=== PATIENT | male | born 1990 | race Caucasian/White ===

== ENCOUNTER → 2022-02-01 | Outpatient (CLI) | payer OTHER ==
--- NOTE | 2022-02-01 16:46 | US ---
EXAMINATION TYPE: US scrotum with doppler. Grayscale and color Doppler Duplex imaging performed of t jacob scrotum. DATE OF EXAM: 02/01/2022 COMPARISON: NONE CLINICAL HISTORY: N50.812 LEFT TESTICULAR PAIN. EXAM MEASUREMENTS: TESTICLES: Right Testicle: 5.4 x 2.5 x 3.5 cm Left Testicle: 4.9 x 3.0 x 3.3 cm EPIDIDYMIS HEAD: Right Epididymis: 0.6 cm Left Epididymis: 0.7 cm Doppler performed to assess for testicular vascularity; good bilateral color flow and waveforms are s een. There is no evidence of testicular torsion. Presence of hydroceles: small right measuring 3.1 x 0.5 x 1.7cm Presence of varicoceles: no IMPRESSION: 1. Appropriate arterial and spectral venous waveforms bilaterally. 2. Small right hydrocele. 3. No evidence for acute process.
== END | disposition home or self-care (01) ==
LOC: RADUSWWP 15:55
PROVIDERS: ATTEND Family Medicine
DX: N43.3 Hydrocele, unspecified (principal); N50.812 Left testicular pain
CPT/HCPCS: 76870; 93975

== ENCOUNTER 2023-04-17 20:42 | Emergency (ER) | payer OTHER ==
[2023-04-17 20:54] VITALS: RESP 18; TEMP 97.3
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
[2023-04-17 22:54] VITALS: BP 138/89; PULSE 81
== END 2023-04-17 22:44 | disposition home or self-care (01) ==
LOC: EC 20:42
DX: M54.2 Cervicalgia (principal); F12.90 Cannabis use, unspecified, uncomplicated; V89.2XXA Person injured in unspecified motor-vehicle accident, traffic, initial encounter; Y92.411 Interstate highway as the place of occurrence of the external cause
CPT/HCPCS: 72050; 99284

== ENCOUNTER 2024-01-20 11:55 | Emergency (ER) | payer OTHER ==
[2024-01-20 12:01] VITALS: RESP 18
--- NOTE | 2024-01-20 12:43 | ED ---
General Adult HPI - General Chief complaint: Chest Pain Stated complaint: chest pain Time Seen by Provider: 01/20/24 12:05 Source: patient, RN notes reviewed Mode of arrival: ambulatory Limitations: no limitations - History of Present Illness Initial comments: Patient is a 33-year-old male presenting to the emergency department with concerns for chest discomfort. Symptoms have been occurring for the past couple of weeks. Discomfort does improve with stretching. Patient does exercise a lot and questions if this is related to sore muscles. No nausea. No diaphoresis. No family history of heart disease. Patient does not smoke cigarettes. No h ypercholesterolemia. No hypertension. Patient has had similar symptoms somewhat previously associated with sore muscles however not quite exactly the same as this. Patient also has times when he feels like his entire body seizes up and he cannot move. - Related Data Home Medications Medication Instructions Recorded Confirmed No Known Home Medications 01/20/24 01/20/24 Allergies Allergy/AdvReac Type Severity Reaction Status Date / Time No Known Allergies Allergy Verified 01/20/24 15:40 Review of Systems ROS Statement: Those systems with pertinent positive or pertinent negative responses have been documented in the HPI. ROS Other: All systems not noted in ROS Statement are negative. Constitutional: Denies: fever Eyes: Denies: eye pain ENT: Denies: ear pain Respiratory: Denies: dyspnea Cardiovascular: Denies: chest pain Endocrine: Denies: fatigue Gastrointestinal: Denies: abdominal pain, nausea, vomiting Genitourinary: Denies: dysuria Musculoskeletal: Denies: back pain Past Medical History Past Medical History: No Reported History History of Any Multi-Drug Resistant Organisms: None Reported Past Surgical History: No Surgical Hx Reported Past Psychological History: No Psychological Hx Reported Smoking Status: Never smoker Past Alcohol Use History: None Reported Past Drug Use History: Marijuana General Exam Limitations: no limitations General appearance: alert, in no apparent distress Head exam: Present: normocephalic Eye exam: Present: normal appearance Neck exam: Present: normal inspection Respiratory exam: Present: normal lung sounds bilaterally, chest wall tenderness (Left anterior chest wall) Cardiovascular Exam: Present: regular rate, normal rhythm, normal heart sounds Expanded Peripheral pulses: 2+: Radial (R), Radial (L), Posterior Tibialis (R), Posterior Tibialis (L) GI/Abdominal exam: Present: soft. Absent: distended, tenderness, pulsatile mass Extremities exam: Present: normal inspection. 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 sent in by a medical professional or institution (Dr. PA, SENIOR CLINICIAN, urgent care, hospital, or retirement...) When possible be specific @ -No Did you speak to anyone other than the patient for history (EMS, parent, family, police, friend...)? What history was obtained from this source @ -No Did you review nursing and triage notes (agree or disagree)? Why? @ -I reviewed and agree with nursing and triage notes Were old charts reviewed (outside hosp., previous admission, EMS record, old EKG, old radiological studies, urgent care reports/EKG's, retirement records)? Report findings @ -No old charts were reviewed Differential Diagnosis (chest pain, altered mental status, abdominal pain women, abdominal pain men, vaginal bleeding, weakness, fever, dyspnea, syncope, headache, dizziness, GI bleed, back pain, seizure, CVA, palpatations, mental health, musculoskeletal)? @ -Differential Chest Pain: Stable Angina, Unstable Angina, STEMI, NSTEMI Aortic Dissection, Pneumothorax, Musculoskeletal, Esophageal Spasm GERD, Cholecystitis, Pancreatitis, Zoster, this is not meant to be an all-inclusive list. EKG interpreted by me (3pts min.). @ -As above X-rays interpreted by me (1pt min.). @ -Chest x-ray shows no acute process CT interpreted by me (1pt min.). @ -None done U/S interpreted by me (1pt. min.). @ -None done What testing was considered but not performed or refused? (CT, X-rays, U/S, labs)? Why? @ -None What meds were considered but not given or refused? Why? @ -None Did you discuss the management of the patient with other professionals (professionals i.e. , PA, SENIOR CLINICIAN, lab, RT, psych nurse, social worker aide, windshield technician, teacher, lodge officer, rn case management)? Give summary @ -No Was smoking cessation discussed for >3mins.? @ -No Was critical care preformed (if so, how long)? @ -No Were there social determinants of health that impacted care today? How? (Homelessness, low income, unemployed, alcoholism, drug addiction, transportation, low edu. Level, literacy, decrease access to med. care, halfway, rehab)? @ -No Was there de-escalation of care discussed even if they declined (Discuss DNR or withdrawal of care, Hospice)? DNR status @ -No What co-morbidities impacted this encounter? (DM, HTN, Smoking, COPD, CAD, Cancer, CVA, ARF, Chemo, Hep., AIDS, mental health diagnosis, sleep apnea, morbid obesity)? @ -None Was patient admitted / discharged? Hospital course, mention meds given and route, prescriptions, significant lab abnormalities, going to OR and other pertinent info. @ -Patient presents with chest discomfort for the last 2 weeks, only minimal early this morning, none since that time. 2 Trope remains negative. Patient low suspicion for active cardiac disease. Patient updated on results and re commendation for close follow-up and to consider stress test. Patient remains symptom-free in the emergency department. Heart score 0 Undiagnosed new problem with uncertain prognosis? @ -No Drug Therapy requiring intensive monitoring for toxicity (Heparin, Nitro, Insulin, Cardizem)? @ -No Were any procedures done? @ -No Diagnosis/symptom? @ -Chest pain Acute, or Chronic, or Acute on Chronic? @ -Acute Uncomplicated (without systemic symptoms) or Complicated (systemic symptoms)? @ -Default Side effects of treatment? @ -No Exacerbation, Progression, or Severe Exacerbation? @ -No Poses a threat to life or bodily function? How? (Chest pain, [place], [place], pneumonia, PE, COPD, DKA, ARF, appy, cholecystitis, CVA, Diverticulitis, Homicidal, Suicidal, threat to staff... and all critical care pts) @ -No - Lab Data Result diagrams: 01/20/24 12:54 01/20/24 12:54 Lab Results 01/20/24 01/20/24 01/20/24 Range/Units 12:54 12:54 12:54 WBC 10.4 (3.8-10.6) k/uL RBC 5.08 (4.30-5.90) m/uL Hgb 15.2 (13.0-17.5) gm/dL Hct 46.0 (39.0-53.0) % MCV 90.5 (80.0-100.0) fL MCH 29.9 (25.0-35.0) pg MCHC 33.1 (31.0-37.0) g/dL RDW 13.4 (11.5-15.5) % Plt Count 274 (150-450) k/uL MPV 7.8 Neutrophils % 64 % Lymphocytes % 27 % Monocytes % 5 % Eosinophils % 2 % Basophils % 0 % Neutrophils # 6.7 (1.3-7.7) k/uL Lymphocytes # 2.8 (1.0-4.8) k/uL Monocytes # 0.6 (0-1.0) k/uL Eosinophils # 0.2 (0-0.7) k/uL Basophils # 0.0 (0-0.2) k/uL PT 10.5 (10.0-12.5) sec INR 0.9 (<1.2) APTT 28.1 (22.0-30.0) sec D-Dimer 0.18 (<0.60) mg/L FEU Sodium 137 (137-145) mmol/L Potassium 4.3 (3.5-5.1) mmol/L Chloride 101 (98-107) mmol/L Carbon Dioxide 26 (22-30) mmol/L Anion Gap 10 mmol/L BUN 24 H (9-20) mg/dL Creatinine 0.85 (0.66-1.25) mg/dL Est GFR (CKD-EPI)AfAm >90 (>60 ml/min/1.73 sqM) Est GFR (CKD-EPI)NonAf >90 (>60 ml/min/1.73 sqM) Glucose 92 (74-99) mg/dL Calcium 9.7 (8.4-10.2) mg/dL Magnesium 2.1 (1.6-2.3) mg/dL Total Bilirubin 0.5 (0.2-1.3) mg/dL AST 39 (17-59) U/L ALT 51 H (4-49) U/L Alkaline Phosphatase 72 (38-126) U/L Troponin I (0.000-0.034) ng/mL Total Protein 7.5 (6.3-8.2) g/dL Albumin 4.9 (3.5-5.0) g/dL Amylase 69 (30-110) U/L Lipase 86 (23-300) U/L 01/20/24 01/20/24 Range/Units 12:54 16:15 WBC (3.8-10.6) k/uL RBC (4.30-5.90) m/uL Hgb (13.0-17.5) gm/dL Hct (39.0-53.0) % MCV (80.0-100.0) fL MCH (25.0-35.0) pg MCHC (31.0-37.0) g/dL RDW (11.5-15.5) % Plt Count (150-450) k/uL MPV Neutrophils % % Lymphocytes % % Monocytes % % Eosinophils % % Basophils % % Neutrophils # (1.3-7.7) k/uL Lymphocytes # (1.0-4.8) k/uL Monocytes # (0-1.0) k/uL Eosinophils # (0-0.7) k/uL Basophils # (0-0.2) k/uL PT (10.0-12.5) sec INR (<1.2) APTT (22.0-30.0) sec D-Dimer (<0.60) mg/L FEU Sodium (137-145) mmol/L Potassium (3.5-5.1) mmol/L Chloride (98-107) mmol/L Carbon Dioxide (22-30) mmol/L Anion Gap mmol/L BUN (9-20) mg/dL Creatinine (0.66-1.25) mg/dL Est GFR (CKD-EPI)AfAm (>60 ml/min/1.73 sqM) Est GFR (CKD-EPI)NonAf (>60 ml/min/1.73 sqM) Glucose (74-99) mg/dL Calcium (8.4-10.2) mg/dL Magnesium (1.6-2.3) mg/dL Total Bilirubin (0.2-1.3) mg/dL AST (17-59) U/L ALT (4-49) U/L Alkaline Phosphatase (38-126) U/L Troponin I <0.012 <0.012 (0.000-0.034) ng/mL Total Protein (6.3-8.2) g/dL Albumin (3.5-5.0) g/dL Amylase (30-110) U/L Lipase (23-300) U/L Disposition Clinical Impression: Chest pain Disposition: HOME SELF-CARE Condition: Stable Instructions (If sedation given, give patient instructions): Chest Pain (ED) Additional Instructions: Please do follow-up with your primary care physician in the next 1 or 2 days for recheck. Consider stress test. Number for cardiology also provided. Return for increased pain, difficulty breathing, worsening or changing symptoms or any other concerns. Is patient prescribed a controlled substance at d/c from ED?: No Referrals: [facility] [NON-STAFF] - 1-2 days [facility] [NON-STAFF] - 1-2 days None,Stated [Primary Care Provider] - 1-2 days Irineo Ya MD [STAFF PHYSICIAN] - 1-2 days Forms: Area PCPs Time of Disposition: 17:00
[2024-01-20] MEDS: KETOROLAC 15 MG/ML 1 ML VIAL IVP STA (12:48)
[2024-01-20 13:08] LABS: Basophils % (A) 0 %; Eosinophils # (A) 0.2 k/uL (0-0.7); Eosinophils % (A) 2 %; HGB 15.2 gm/dL (13.0-17.5); Lymphocytes # (A) 2.8 k/uL (1.0-4.8); Lymphocytes % (A) 27 %; MCH 29.9 pg (25.0-35.0); MCHC 33.1 g/dL (31.0-37.0); MCV 90.5 fL (80.0-100.0); Mean Platelet Volume 7.8; Monocytes # (A) 0.6 k/uL (0-1.0); Monocytes % (A) 5 %; Neutrophils # (A) 6.7 k/uL (1.3-7.7); Neutrophils % (A) 64 %; Platelet Count 274 k/uL (150-450); RBC 5.08 m/uL (4.30-5.90); RDW 13.4 % (11.5-15.5); WBC 10.4 k/uL (3.8-10.6)
[2024-01-20 13:19] LABS: ALT 51 U/L (4-49); AST 39 U/L (17-59); African American GFR (CKD) >90 (>60 ml/min/1.73 sqM); Albumin 4.9 g/dL (3.5-5.0); Alkaline Phosphatase 72 U/L (38-126); Amylase 69 U/L (30-110); Anion Gap 10 mmol/L; Blood Urea Nitrogen 24 mg/dL (9-20); Calcium 9.7 mg/dL (8.4-10.2); Carbon Dioxide 26 mmol/L (22-30); Chloride 101 mmol/L (98-107); Glucose 92 mg/dL (74-99); Lipase 86 U/L (23-300); Magnesium 2.1 mg/dL (1.6-2.3); Non-African American GFR(CKD) >90 (>60 ml/min/1.73 sqM); Potassium 4.3 mmol/L (3.5-5.1); Sodium 137 mmol/L (137-145); Total Bilirubin 0.5 mg/dL (0.2-1.3); Total Protein 7.5 g/dL (6.3-8.2)
[2024-01-20 13:30] LABS: INR 0.9 (<1.2); Partial Thromboplastin Time 28.1 sec (22.0-30.0); Prothrombin Time 10.5 sec (10.0-12.5)
--- NOTE | 2024-01-20 13:42 | XR ---
EXAMINATION TYPE: XR chest 2V DATE OF EXAM: 01/20/2024 1:03 PM COMPARISON: None CLINICAL INDICATION: Male, 33 years old with history of Chest Pain; TECHNIQUE: XR chest 2V Frontal and lateral views of the chest. FINDINGS: Lungs/Pleura: There is no evidence of pleural effusion, focal consolidation, or pneumothorax. Pulmonary vascularity: Unremarkable. Heart/mediastinum: Cardiomediastinal silhouette is unremarkable. Musculoskeletal: No acute osseous pathology. IMPRESSION: No acute cardiopulmonary disease/process. [facility], , 01/20/2024 1:40 PM
[2024-01-20 17:12] VITALS: BP 127/80; PULSE 67; TEMP 97.9
== END 2024-01-20 17:22 | disposition home or self-care (01) ==
LOC: EC 11:55
DX: R07.9 Chest pain, unspecified (principal)
CPT/HCPCS: 36415; 93005; 85379; 80053; 82150; 83690; 83735; 84484; 85025; 85610; 85730; 71046; 99285; 96374; J1885

== ENCOUNTER → 2024-02-16 | Outpatient (CLI) | payer OTHER ==
[2024-02-16 15:41] LABS: LDL Cholesterol,Calculated 111.3 mg/dL (0.0-131.0)
[2024-02-16 17:05] LABS: NT-Pro-B-Type Natriuretic Pept 43 pg/mL (0-125)
== END | disposition home or self-care (01) ==
LOC: LABWHC1 09:09
PROVIDERS: ATTEND Student in an Organized Health Care Education/Training Program
DX: I50.9 Heart failure, unspecified (principal); E11.9 Type 2 diabetes mellitus without complications; E78.5 Hyperlipidemia, unspecified; E03.9 Hypothyroidism, unspecified
CPT/HCPCS: 36415; 80061; 83036; 83880; 84443